=== PATIENT | male | born 1960 | race Caucasian/White ===

== ENCOUNTER → 2019-01-14 | Outpatient (CLI) | payer OTHER ==
--- NOTE | 2019-01-15 09:17 | REP ---
CT paranasal sinuses: 01/14/2019. Indication: Sinusitis. Comparison: None. Technique: Unenhanced axial images of the paranasal sinuses were performed with coronal reconstructions provided. Findings: There is minimal periosteal mucosal thickening within the inferior left maxillary sinus as well as the ethmoid air cells. The sinonasal passageways are patent. No air-fluid levels or frothy secretions are present. The mastoid air cells are clear. No significant deviation of the nasal septum is present. No ocular, intraorbital or intracranial abnormalities are detected. Punctate hyperdensities are noted within the palatine tonsils bilaterally indicative of chronic tonsillitis. Lucencies of the left maxilla suggest somewhat recent first left maxillary molar extraction. Impression: Minimal chronic-appearing left maxillary and ethmoid sinus disease as described. Electronically Signed by Jameson Cabrera DO 01/15/2019 09:09 A
== END ==
LOC: M RAD 18:05
PROVIDERS: ATTEND Specialist
DX: J01.00 Acute maxillary sinusitis, unspecified (principal)